=== PATIENT | female | born 1965 | race Caucasian/White ===

== ENCOUNTER 2017-07-16 12:57 | Outpatient (CLI) | payer OTHER ==
--- NOTE | 2017-07-17 08:32 | Diagnostic Imaging Report ---
Exam: Frontal chest x-ray single view HISTORY: +PPD Findings: Frontal examination of chest was reviewed the study demonstrates a no acute pulmonic infiltrates or effusions. Mediastinal structures midline the aortic arch calcified. The visualized bony thorax is intact. IMPRESSION: No acute disease No evidence for active tuberculosis. Mild left basilar atelectasis cannot be excluded clinical correlation recommended.
== END 2017-07-16 15:00 | disposition home or self-care (01) ==
LOC: RAD 12:57
PROVIDERS: ATTEND Internal Medicine
DX: J98.11 Atelectasis (principal)
CPT/HCPCS: 71045-TC